=== PATIENT | male | born 1950 | race Caucasian/White ===

== ENCOUNTER → 2017-01-07 | Outpatient (CLI) | payer OTHER, MEDICAID ==
--- NOTE | 2017-01-07 12:57 | NM ---
HISTORY: Cervical radiculopathy Study: Nuclear medicine total body bone scan Comparison: None Technique: Patient received intravenous injection of 25.6 millicuries technetium 99 MDP. Images were obtained 3 hours post injection. Findings: There are no significant areas of abnormal tracer concentration in the axial or appendicular skeleto n. No abnormal tracer concentration is identified in the area the cervical spine. IMPRESSION: No significant abnormality identified Reported By:
== END ==
LOC: RAD 09:22
PROVIDERS: ATTEND Neurological Surgery
DX: M54.12 Radiculopathy, cervical region (principal)
CPT/HCPCS: 78306

== ENCOUNTER → 2017-01-09 | Outpatient (CLI) | payer OTHER, MEDICAID ==
[~2017-01-09] MED LIST: NS 100 ML IV 100 ML IV ONE
[2017-01-09 09:45] LABS: CREATININE 1.29 mg/dL (0.70-1.30)
--- NOTE | 2017-01-10 11:09 | CT ---
CT ANGIOGRAPHY HEAD AND NECK CLINICAL HISTORY: 66-year-old male with left-sided weakness. COMPARISON: None. TECHNIQUE: Multiple contiguous axial CT images were obtained from the cranial vertex to the aortic arch prior to and following the administration of IV contrast. Coronal and sagittal reformats provid ed. Rotating MIP reformats submitted. FINDINGS: Noncontrasted images demonstrate no evidence of abnormal intra- or extra-axial fluid collections, mi dline shift, or mass effect. Nolasco-white differentiation is maintained. Age advanced volume loss wit h commensurate ventricular and sulcal prominence. The basilar cisterns are normal. Post contrast images demonstrate no evidence of abnormal intracranial enhancement. Left dominant ashleigh tebral artery. The basilar artery gives off normal bilateral superior cerebellar and posterior cere bral arteries. Posterior communicating arteries are not visualized. Approximately 70% stenosis of th e proximal right ICA just distal to its origin secondary to calcific and noncalcific atherosclerotic plaque, which is present at the carotid bulbs bilaterally The internal carotid arteries are otherwi se normal from their distal cervical segments to the carotid terminus. The middle cerebral arteries and anterior cerebral arteries are normal, with a dominant left A1 segment. There is a small caliber anterior communicating artery. There is normal opacification of the major dural venous sinuses. The take off of the great vessels is conventional. The origins of the common carotid and vertebral arteries are patent. There is no evidence of dissection or high grade stenosis of the common carotid or vertebral systems. Left dominant vertebral artery. The soft tissues of the neck are within shaunna l limits. The visualized lung apices are clear. Multilevel degenerative change of the imaged spine w ith prior ACDF C3-C4 and C5-C6 with significant arthrodesis of the vertebral bodies without evidence of hardware failure. At C2-C3: Central canal is widely patent with left-sided uncovertebral joint hypertrophy producing m ild left neural foraminal stenosis. At C3-C4: No significant central canal or neural foraminal stenosis. At C4-C5: Mild facet hypertrophy without significant neural foraminal stenosis. No central canal brenda nosis. At C5-C6: No significant central canal or neural foraminal stenosis. At C6-C7: No significant central canal or neural foraminal stenosis. At C7-T1: No significant central canal or neural foraminal stenosis. There is significant anterior o steophytosis. IMPRESSION: 1. Approximately 70% stenosis of the proximal right ICA just distal to its origin from the carotid b ulb secondary to calcific and noncalcific atherosclerotic plaque. 2. Intact anterior and posterior circulations without other area of high-grade stenosis, dissection, major branch occlusion, aneurysm, or vascular malformation. 3. No dissection or high grade stenosis of the common carotid or vertebral systems. 4. Multilevel degenerative change status post ACDF at multiple levels without evidence of hardware f ailure or significant central canal/neural foraminal stenosis. Reported By:
== END ==
LOC: RAD 08:48
PROVIDERS: ATTEND Neurological Surgery
DX: G93.89 Other specified disorders of brain (principal)
CPT/HCPCS: 36415; 70498; 82565; 84520; A4222